=== PATIENT | female | born 1985 | race American Indian/Alaskan Native ===

== ENCOUNTER 2018-10-09 22:47 | Emergency (ER) | payer SELFPAY ==
[2018-10-09] MEDS ORDERED: DUONEB *Not for PRN Use IH ONE (23:19)
--- NOTE | 2018-10-10 00:26 | XRay Report ---
CHEST 2 VIEWS INDICATION / CLINICAL INFORMATION: cough. COMPARISON: None available. FINDINGS: SUPPORT DEVICES: None. HEART / MEDIASTINUM: No significant abnormality. LUNGS / PLEURA: No significant pulmonary or pleural abnormality. No pneumothorax. ADDITIONAL FINDINGS: No significant additional findings. IMPRESSION: 1. No acute findings. Signer Name: Gunner Loera MD Signed: 10/10/2018 12:21 AM Workstation Name: [id number]
[2018-10-10] MEDS ORDERED: PROVENTIL IH ONE ×2 (00:54→01:12)
[2018-10-10] MEDS ORDERED: TORADOL IM ONE (00:55)
[2018-10-10] MEDS ORDERED: SOLU-Medrol IM ONE (00:55)
[2018-10-10] MEDS ORDERED: FIORICET PO ONE (00:56)
[2018-10-10] MEDS ORDERED: SOLU-Medrol ONE (01:07)
[2018-10-10] MEDS ORDERED: TORADOL ONE (01:07)
--- NOTE | 2018-10-10 02:01 | Emergency Department Report ---
ED General Adult HPI - General Chief complaint: Dyspnea/Respdistress Stated complaint: BODY PAIN, COLD Source: patient Mode of arrival: Ambulatory Limitations: No Limitations - History of Present Illness Initial comments: Patient is a 33-year-old female with no past medical history who presents to the ED complaining of acute onset persistent nasal and sinus con gestion and pressure, persistent cough with pleuritic chest pain and wheezing for the last 1 week, worse in the last 2 days. Patient states that the coughing is worse at night when she lays down to sleep. Patient denies fever, chills, nausea, vomiting, dizziness, abdominal pain, diaphoresis, change in vision, sore throat, back pain, palpitations, diarrhea or dysuria. MD Complaint: dry cough, frontal sinus pressure -: Gradual, week(s) (1) Location: chest Radiation: non-radiation Severity scale (0 -10): 8 Quality: aching, sharp Consistency: constant Improves with: none Worsens with: none Associated Symptoms: denies other symptoms, cough, headaches, shortness of breath. denies: confusion, chest pain, diaphoresis, fever/chills, loss of appet ite, malaise, nausea/vomiting, rash, seizure, syncope Treatments Prior to Arrival: none - Related Data Previous Rx's Medication Instructions Recorded Last Taken Type Benzonatate [Tessalon Perles] 100 mg PO Q8HR #30 capsule 10/10/18 Unknown Rx Cetirizine HCl [Zyrtec 10mg tab] 10 mg PO DAILY #30 tablet 10/10/18 Unknown Rx DOXYCYCLINE Hyclate [Vibramycin 100 mg PO Q12HR #20 capsule 10/10/18 Unknown Rx CAP] Ibuprofen [Motrin] 800 mg PO Q8HR PRN #20 tablet 10/10/18 Unknown Rx Prednisone [predniSONE 10 mg 10 mg PO .TAPER #21 tab.ds.pk 10/10/18 Unknown Rx (6-Day Pack, 21 Tabs)] Allergies Allergy/AdvReac Type Severity Reaction Status Date / Time No Known Allergies Allergy Verified 10/10/18 01:01 ED Review of Systems ROS: Stated complaint: BODY PAIN, COLD Other details as noted in HPI Constitutional: denies: chills, fever Eyes: denies: eye pain, eye discharge, vision change ENT: congestion. denies: ear pain, throat pain Respiratory: cough, shortness of breath, wheezing Cardiovascular: denies: chest pain, palpitations Endocrine: no symptoms reported Gastrointestinal: denies: abdominal pain, nausea, diarrhea Genitourinary: denies: urgency, dysuria, discharge Musculoskeletal: denies: back pain, joint swelling, arthralgia Skin: denies: rash, lesions Neurological: denies: headache, weakness, paresthesias Psychiatric: denies: anxiety, depression Hematological/Lymphatic: denies: easy bleeding, easy bruising ED Past Medical Hx - Past Medical History Previous Medical History?: Yes Additional medical history: Bronchitis - Surgical History Past Surgical History?: No - Social History Smoking Status: Current Every Day Smoker Substance Use Type: None - Medications Home Medications: Home Medications Medication Instructions Recorded Confirmed Last Taken Type Benzonatate [Tessalon Perles] 100 mg PO Q8HR #30 capsule 10/10/18 Unknown Rx Cetirizine HCl [Zyrtec 10mg tab] 10 mg PO DAILY #30 tablet 10/10/18 Unknown Rx DOXYCYCLINE Hyclate [Vibramycin 100 mg PO Q12HR #20 capsule 10/10/18 Unknown Rx CAP] Ibuprofen [Motrin] 800 mg PO Q8HR PRN #20 tablet 10/10/18 Unknown Rx Prednisone [predniSONE 10 mg 10 mg PO .TAPER #21 tab.ds.pk 10/10/18 Unknown Rx (6-Day Pack, 21 Tabs)] ED Physical Exam - General Limitations: No Limitations General appearance: alert, in no apparent distress - Head Head exam: Present: atraumatic, normocephalic, normal inspection - Eye Eye exam: Present: normal appearance, PERRL, EOMI - ENT ENT exam: Present: normal exam, normal orophraynx, mucous membranes moist, TM's normal bilaterally, normal external ear exam, other (Grossly congested nasal passages) - Neck Neck exam: Present: normal inspection, full ROM. Absent: tenderness - Respiratory Respiratory exam: Present: normal lung sounds bilaterally, wheezes (mildly diffuse). Absent: respiratory distress, rales, rhonchi, chest wall tenderness, accessory muscle use, prolonged expiratory - Cardiovascular Cardiovascular Exam: Present: regular rate, normal rhythm, normal heart sounds. Absent: systolic murmur, diastolic murmur, rubs, gallop - GI/Abdominal GI/Abdominal exam: Present: soft, normal bowel sounds. Absent: tenderness, hyperactive bowel sounds, hypoactive bowel sounds - Rectal Rectal exam: Present: deferred - Extremities Exam Extremities exam: Present: normal inspection, full ROM, normal capillary refill - Back Exam Back exam: Present: normal inspection, full ROM. Absent: CVA tenderness (L), muscle spasm, vertebral tenderness - Neurological Exam Neurological exam: Present: alert, oriented X3, CN II-XII intact, normal gait, reflexes normal - Psychiatric Psychiatric exam: Present: normal affect, normal mood - Skin Skin exam: Present: warm, dry, intact, normal color. Absent: rash ED Course Vital Signs 10/09/18 10/09/18 10/09/18 22:51 23:15 23:35 Temperature 98.7 F Pulse Rate 84 Pulse Rate [ 88 87 Anterior] Respiratory Rate Respiratory 18 19 Rate [Anterior] Blood Pressure 121/80 O2 Sat by Pulse 97 Oximetry 10/09/18 10/10/18 10/10/18 23:46 01:16 01:20 Temperature Pulse Rate Pulse Rate [ Anterior] Respiratory 18 16 16 Rate Respiratory Rate [Anterior] Blood Pressure O2 Sat by Pulse Oximetry - Reevaluation(s) Reevaluation #1: 10/10/18 02:00 This is a 33-year-old female with a history of chronic bronchitis who presents to the ED with shortness of breath, dry cough, frontal sinus pressure for 1 week. Patient is alert and oriented 3, and is in no acute distress. Patient received nebulizer treatments in the ED as well as Solu-Medrol and pain medications for headache. Chest x-ray shows no acute cardiopulmonary abnormalities. Patient was discharged home on medications and advised to follow-up with her primary care physician in 7-10 days for reevaluation. Patient was advised to return to the ED immediately if symptoms get worse. ED Medical Decision Making - Radiology Data Radiology results: report reviewed, image reviewed Chest x-ray: No acute cardiopulmonary abnormalities - Medical Decision Making This is a 33-year-old female with a history of chronic bronchitis who presents to the ED with shortness of breath, dry cough, frontal sinus pressure for 1 week. Patient is alert and oriented 3, and is in no acute distress. Patient received nebulizer treatments in the ED as well as Solu-Medrol and pain medications for headache. Chest x-ray shows no acute cardiopulmonary abnormalities. Patient was discharged home on medications and advised to follow-up with her primary care physician in 7-10 days for reevaluation. Patient was advised to return to the ED immediately if symptoms get worse. - Differential Diagnosis chronic bronchitis, sinusitis, acute URI Critical care attestation.: If time is entered above; I have spent that time in minutes in the direct care of this critically ill patient, excluding procedure time. ED Disposition Clinical Impression: Acute upper respiratory infection Chronic bronchitis Qualifiers: Chronic bronchitis type: simple Qualified Code(s): J41.0 - Simple chronic bronchitis Chronic sinusitis Qualifiers: Sinusitis location: frontal Qualified Code(s): J32.1 - Chronic frontal sinusitis Disposition: TO HOME OR SELFCARE Is pt being admited?: No Does the pt Need Aspirin: No Condition: Stable Instructions: Chronic Bronchitis (ED), Acute Bacterial Rhinosinusitis (ED) Additional Instructions: Take medications with food, drink plenty of fluids and follow-up with your primary care physician in 7-10 days for reevaluations. Return to the ED immediately if symptoms get worse. Prescriptions: Ibuprofen [Motrin] 800 mg PO Q8HR PRN #20 tablet PRN Reason: Pain , Severe (7-10) Prednisone [predniSONE 10 mg (6-Day Pack, 21 Tabs)] 10 mg PO .TAPER #21 tab.ds.pk Benzonatate [Tessalon Perles] 100 mg PO Q8HR #30 capsule DOXYCYCLINE Hyclate [Vibramycin CAP] 100 mg PO Q12HR #20 capsule Cetirizine HCl [Zyrtec 10mg tab] 10 mg PO DAILY #30 tablet Referrals: [facility] [Outside] - 3-5 Days Time of Disposition: 02:03 Print Language: AUSTRIAN
[2018-10-10 02:24] VITALS: BP 150/87
== END 2018-10-10 02:23 | disposition home or self-care (01) ==
LOC: ED 22:47
DX: J06.9 Acute upper respiratory infection, unspecified (principal); J42 Unspecified chronic bronchitis; J32.8 Other chronic sinusitis; F17.200 Nicotine dependence, unspecified, uncomplicated; Z79.899 Other long term (current) drug therapy
CPT/HCPCS: 71046; 94644; 96372; 99283; J1885; J2930

== ENCOUNTER 2018-11-02 21:22 | Emergency (ER) | payer SELFPAY ==
--- NOTE | 2018-11-02 21:59 | Event Note ---
ED Screening Note ED Screening Note: cough for 1 month pt was on antibiotics no better pmh none psh none rx inhaler lmp 10/12 cig no This initial assessment/diagnostic orders/clinical plan/treatment(s) is/are subject to change based on patients health status, clinical progression and re- assessment by fellow clinical providers in the ED. Further treatment and workup at subsequent clinical providers discretion. Patient/guardian urged not to elope from the ED as their condition may be serious if not clinically assessed and managed. Initial orders include: xray
[2018-11-02 22:00] VITALS: BP 116/74
--- NOTE | 2018-11-02 22:47 | XRay Report ---
CHEST PA AND LATERAL VIEWS INDICATION: cough. COMPARISON: 06/09/2018 FINDINGS: Support devices: None Heart: Normal and unchanged Lungs/Pleura: No acute pulmonary or pleural findings. IMPRESSION: 1. Negative study. No interval change. Signer Name: Selwyn Peña MD Signed: 11/02/2018 10:42 PM Workstation Name: [id number]
--- NOTE | 2018-11-03 01:41 | Emergency Department Report ---
ED General Adult HPI - General Chief complaint: Upper Respiratory Infection Stated complaint: PAINFUL COUGH FOR 5 WEEKS Time Seen by Provider: 11/02/18 21:57 Source: patient Mode of arrival: Ambulatory Limitations: No Limitations - History of Present Illness Improves with: none Worsens with: none Associated Symptoms: cough. denies: confusion, diaphoresis, fever/chills, loss of appetite, malaise, nausea/vomiting, rash, shortness of breath, syncope, weakness Treatments Prior to Arrival: none - Related Data Previous Rx's Medication Instructions Recorded Last Taken Type Benzonatate [Tessalon Perles] 100 mg PO Q8HR #30 capsule 10/10/18 Unknown Rx Cetirizine HCl [Zyrtec 10mg tab] 10 mg PO DAILY #30 tablet 10/10/18 Unknown Rx DOXYCYCLINE Hyclate [Vibramycin 100 mg PO Q12HR #20 capsule 10/10/18 Unknown Rx CAP] Ibuprofen [Motrin] 800 mg PO Q8HR PRN #20 tablet 10/10/18 Unknown Rx Prednisone [predniSONE 10 mg 10 mg PO .TAPER #21 tab.ds.pk 10/10/18 Unknown Rx (6-Day Pack, 21 Tabs)] ALBUTEROL Inhaler (OR & NICU) 1 puff IH Q4-6H PRN #1 inha 11/03/18 Unknown Rx [ProAir HFA Inhaler] guaiFENesin/CODEINE [Robitussin AC] 5 ml PO Q6H PRN #120 ml 11/03/18 Unknown Rx Allergies Allergy/AdvReac Type Severity Reaction Status Date / Time No Known Allergies Allergy Verified 10/10/18 01:01 ED Review of Systems ROS: Stated complaint: PAINFUL COUGH FOR 5 WEEKS Other details as noted in HPI Comment: All other systems reviewed and negative ED Past Medical Hx - Past Medical History Previous Medical History?: Yes Additional medical history: Bronchitis - Surgical History Past Surgical History?: No - Social History Smoking Status: Former Smoker Substance Use Type: None - Medications Home Medications: Home Medications Medication Instructions Recorded Confirmed Last Taken Type Benzonatate [Tessalon Perles] 100 mg PO Q8HR #30 capsule 10/10/18 Unknown Rx Cetirizine HCl [Zyrtec 10mg tab] 10 mg PO DAILY #30 tablet 10/10/18 Unknown Rx DOXYCYCLINE Hyclate [Vibramycin 100 mg PO Q12HR #20 capsule 10/10/18 Unknown Rx CAP] Ibuprofen [Motrin] 800 mg PO Q8HR PRN #20 tablet 10/10/18 Unknown Rx Prednisone [predniSONE 10 mg 10 mg PO .TAPER #21 tab.ds.pk 10/10/18 Unknown Rx (6-Day Pack, 21 Tabs)] ALBUTEROL Inhaler (OR & NICU) 1 puff IH Q4-6H PRN #1 inha 11/03/18 Unknown Rx [ProAir HFA Inhaler] guaiFENesin/CODEINE [Robitussin AC] 5 ml PO Q6H PRN #120 ml 11/03/18 Unknown Rx ED Physical Exam - General Limitations: No Limitations General appearance: alert, in no apparent distress - Head Head exam: Present: atraumatic, normocephalic - Eye Eye exam: Present: normal appearance, PERRL, EOMI Pupils: Present: normal accommodation - ENT ENT exam: Present: mucous membranes moist - Neck Neck exam: Present: normal inspection - Respiratory Respiratory exam: Present: normal lung sounds bilaterally. Absent: respiratory distress - Cardiovascular Cardiovascular Exam: Present: regular rate, normal rhythm. Absent: systolic murmur, diastolic murmur, rubs, gallop - GI/Abdominal GI/Abdominal exam: Present: soft, normal bowel sounds - Extremities Exam Extremities exam: Present: normal inspection - Back Exam Back exam: Present: normal inspection - Neurological Exam Neurological exam: Present: alert, oriented X3 - Psychiatric Psychiatric exam: Present: normal affect, normal mood - Skin Skin exam: Present: warm, dry, intact, normal color. Absent: rash ED Course Vital Signs 11/02/18 11/02/18 21:32 21:58 Temperature 98.7 F 98.7 F Pulse Rate 92 H 90 Respiratory 16 16 Rate Blood Pressure 115/74 116/74 O2 Sat by Pulse 99 99 Oximetry ED Medical Decision Making - Radiology Data Radiology results: report reviewed (chest x-ray is negative for acute processes) - Medical Decision Making Data 30-year-old female, 5-6 week history of cough and fluctuance of productive activity. No hemoptysis, no fever no fever. Reports no dyspnea or exertional dyspnea. No palpitations. No trauma. No orthopnea. Also the lower extremities. No suggestions of any emergent or urgent health condition. Patient about pneumonia which is been ruled out. Critical care attestation.: If time is entered above; I have spent that time in minutes in the direct care of this critically ill patient, excluding procedure time. ED Disposition Clinical Impression: Cough Disposition: DC-01 TO HOME OR SELFCARE Is pt being admited?: No Does the pt Need Aspirin: No Condition: Stable Instructions: Chronic Cough (ED) Prescriptions: ALBUTEROL Inhaler (OR & NICU) [ProAir HFA Inhaler] 1 puff IH Q4-6H PRN #1 inha PRN Reason: Cough guaiFENesin/CODEINE [Robitussin AC] 5 ml PO Q6H PRN #120 ml PRN Reason: Cough Referrals: PRIMARY CARE, [Primary Care Provider] - 3-5 Days [facility] [Provider Group] - 3-5 Days
== END 2018-11-03 02:35 | disposition home or self-care (01) ==
LOC: ED 21:22
DX: R05 Cough (principal); Z79.899 Other long term (current) drug therapy; Z87.891 Personal history of nicotine dependence
CPT/HCPCS: 71046

== ENCOUNTER 2018-12-23 17:58 | Emergency (ER) | payer OTHER ==
[2018-12-23 21:27] VITALS: BP 112/72
[2018-12-23] MEDS ORDERED: IBUPROFEN PO ONE (21:53)
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
== END 2018-12-23 23:34 | disposition home or self-care (01) ==
LOC: ED 17:58
DX: S16.1XXA Strain of muscle, fascia and tendon at neck level, initial encounter (principal); S39.012A Strain of muscle, fascia and tendon of lower back, initial encounter; S40.022A Contusion of left upper arm, initial encounter; F17.200 Nicotine dependence, unspecified, uncomplicated; Z79.899 Other long term (current) drug therapy; V49.49XA Driver injured in collision with other motor vehicles in traffic accident, initial encounter; Y93.89 Activity, other specified; Y92.410 Unspecified street and highway as the place of occurrence of the external cause; Y99.8 Other external cause status
CPT/HCPCS: 72100